=== PATIENT | male | born 1985 | race Caucasian/White ===

== ENCOUNTER 2019-11-01 15:10 | Emergency (ER) | payer OTHER ==
[~2019-11-01] VITALS: Ht 177.8 cm; Wt 68.2 kg
[2019-11-01 15:26] VITALS: BP 123/83; Ht 177.8 cm; Wt 68.2 kg
== END 2019-11-01 18:46 | disposition home or self-care (01) ==
LOC: D.ER 15:10
DX: S51.812A Laceration without foreign body of left forearm, initial encounter (principal); W26.0XXA Contact with knife, initial encounter; Y93.9 Activity, unspecified; Y92.9 Unspecified place or not applicable